=== PATIENT | female | born 1945 | race Caucasian/White ===

== ENCOUNTER 2016-10-23 09:26 | Emergency (ER) | payer MEDICARE ==
--- NOTE | 2016-10-23 10:00 | ED Physician Documentation ---
Syncope/Near Syncope - HISTORIAN Historian: patient - HPI Stated Complaint: syncope Chief Complaint: Syncope Additional Information: passed out while seated on the commode. Hitting face on floor, which startled her awake. No complaints at present, no injury complaints. Witnessed: No Position at Time of Episode: sitting Activity at Time of Episode: voiding and having BM Symptoms Prior to Episode: none Character of Events(s): collapsed, felt faint Duration of Loss of Consciousness: seconds Location of Injury: none, face Associated Symptoms: none, feels back to normal Further Comments: no - ROS CONST: recent illness, cough EYES/ENT: none - PAST HX Cardiac Disease: none PE Risk Factors: none Other History: Other (has a diagnosis of neuro genic syncope since childhood. 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) Immunizations: UTD Allergies/Adverse Reactions: Allergies Allergy/AdvReac Type Severity Reaction Status Date / Time No Known Allergies Allergy Verified 10/23/16 09:57 Home Medications: Ambulatory Orders Medication Instructions Recorded Nitrofurantoin Monohyd/M-Cryst 100 mg PO BID #10 capsule 10/23/16 [Macrobid] - SOCIAL HX Smoking History: non-smoker Alcohol Use: none Drug Use: none - FAMILY HX Family History: none - VITAL SIGNS Vital Signs: Vital Signs Temp Pulse Resp BP Pulse Ox 98.1 F 65 16 151/71 95 10/23/16 09:49 10/23/16 09:49 10/23/16 09:49 10/23/16 09:49 10/23/16 11:03 - REVIEWED ASSESSMENTS Nursing Assessment Reviewed: Yes Vitals Reviewed: Yes ED Results Lab/Radiology - Lab Results Lab Results: Lab Results 10/23/16 10/23/16 10/23/16 10:30 10:00 10:00 WBC RBC Hgb Hct MCV MCH MCHC RDW Plt Count Neut % (Auto) Lymph % (Auto) Grimes % (Auto) Eos % (Auto) Baso % (Auto) Neut # Lymph # Grimes # Eos # Baso # Reactive Lymphs % Reactive Lymphs # Sodium Potassium Chloride Carbon Dioxide BUN Creatinine Estimated Creat Clear Est GFR ( Amer) Est GFR (Non-Af Amer) Glucose Calcium Total Bilirubin AST ALT Alkaline Phosphatase Creatine Kinase CK-MB (CK-2) 1.1 ng/mL ng/mL (0.3-5.0) Troponin I < 0.03 ng/mL L ng/mL (0.03-0.06) Total Protein Albumin Urine Color Yellow (YELLOW) Urine Appearance Clear (CLEAR) Urine pH 8.0 (5.0 - 8.0) Ur Specific Surprise 1.015 (1.010-1.030) Urine Protein Negative mg/dL mg/dL (NEGATIVE) Urine Ketones Negative mg/dL mg/dL (NEGATIVE) Urine Occult Blood 2+ H (NEGATIVE) Urine Nitrite Negative (NEGATIVE) Urine Bilirubin Negative (NEGATIVE) Urine Urobilinogen 0.2 Eu Eu (0.2-1.0) Ur Leukocyte Esterase Negative (NEGATIVE) Urine RBC 5-10 H (0-2 HPF) Urine WBC 0-2 (0-5 HPF) Amorphous Sediment Few H (NEGATIVE) Urine Glucose Negative mg/dL mg/dL (NEGATIVE) 10/23/16 10/23/16 10:00 10:00 WBC 5.40 K/ul K/ul (4.00-12.00) RBC 4.35 M/ul M/ul (3.90-5.20) Hgb 13.1 g/dL g/dL (12.0-16.0) Hct 39.8 % % (34.5-46.5) MCV 91.6 fl fl (80.0-100.0) MCH 30.0 pg pg (28.0-34.0) MCHC 32.8 g/dL g/dL (30.0-36.0) RDW 12.6 % % (11.3-14.3) Plt Count 165 K/mm3 K/mm3 (130-400) Neut % (Auto) 80.2 % H % (39.0-79.0) Lymph % (Auto) 13.4 % L % (16.0-50.0) Grimes % (Auto) 4.7 % % (0.0-11.0) Eos % (Auto) 0.3 % % (0.0-6.8) Baso % (Auto) 0.1 (0.0-1.5) Neut # 4.3 # k/uL # k/uL (1.4-7.7) Lymph # 0.7 # k/uL # k/uL (0.6-4.0) Grimes # 0.2 # k/uL # k/uL (0.0-0.9) Eos # 0.0 # k/uL # k/uL (0.0-0.6) Baso # 0.0 # k/uL # k/uL (0.0-0.5) Reactive Lymphs % 1.2 % % (0.0-5.0) Reactive Lymphs # 0.1 # k/uL # k/uL (0.0-0.8) Sodium 140 mmol/L mmol/L (136-145) Potassium 3.9 mmol/L mmol/L (3.5-5.0) Chloride 102 mmol/L mmol/L (98-110) Carbon Dioxide 33 mmol/L H mmol/L (20-32) BUN 16 mg/dL mg/dL (10-26) Creatinine 0.6 mg/dL mg/dL (0.4-1.5) Estimated Creat Clear 79 Est GFR ( Amer) > 60 (60 - ) Est GFR (Non-Af Amer) > 60 (60 - ) Glucose 97 mg/dL mg/dL (70-99) Calcium 10.0 mg/dL mg/dL (8.5-10.5) Total Bilirubin 0.6 mg/dL mg/dL (0.2-1.2) AST 27 U/L U/L (0-41) ALT 21 U/L U/L (0-45) Alkaline Phosphatase 78 U/L U/L (46-116) Creatine Kinase 46 U/L U/L (0-225) CK-MB (CK-2) Troponin I Total Protein 7.1 g/dL g/dL (6.0-8.5) Albumin 4.9 g/dL g/dL (3.0-5.5) Urine Color Urine Appearance Urine pH Ur Specific Surprise Urine Protein Urine Ketones Urine Occult Blood Urine Nitrite Urine Bilirubin Urine Urobilinogen Ur Leukocyte Esterase Urine RBC Urine WBC Amorphous Sediment Urine Glucose Urine positive for RBC's - Radiology Radiology Impressions: CT brain shows age related changes, no acute CXR shows age related changes of COPD, no acute. - Orders Orders: ED Orders Category Date Time Status Assess pulse oximetry Q1H Care 10/23/16 09:[address] Saline Lock/IV Now Care 10/23/16 09:53 Active CHEST P.A.&LAT 2 VIEWS [RAD] Stat Exams 10/23/[address] BRAIN W/O CONTRAST Stat Exams 10/23/16 Ordered CBC/PLATELET/DIFF Routine Lab 10/23/16 10:00 Completed CMP Routine Lab 10/23/16 10:00 Completed CREATINE KINASE MB Routine Lab 10/23/16 10:00 Completed CREATINE KINASE Routine Lab 10/23/16 10:00 Completed TROPONIN I (cTnI) Stat Lab 10/23/16 10:00 Completed URINALYSIS Routine Lab 10/23/16 10:30 Completed EKG WITH COMPARISON Stat Ther 10/23/16 Ordered Syncope Physical Exam - Physical Exam General Appearance: no acute distress, alert EENT: nml eye inspection, PERRL, nml ENT inspection, pharynx nml (mild erythema) , other (small abrasion upper lip) Neck/Back: neck supple, non-tender, no carotid bruit. No: cerv. lymphadenopathy , carotid bruit Respiratory: no resp distress, chest non-tender, breath sounds normal. No: wheezes, rales, rhonchi CVS: reg rate & rhythm, heart sounds normal, equal pulses, no murmur, no gallop , no JVD Abdomen: non-tender Skin: warm/dry, normal color Extremities: non-tender, normal range of motion, no evidence of injury, no edema - Neuro/Psych Higher Functions: alert, oriented x3, no evidence of acute CVA, mood/affect nml Cranial Nerves: nml as tested Cerebellar: nml as tested Sensorimotor: nml motor response Discharge Clincal Impression: Cystitis Syncopal episodes Qualifiers: Syncope type: unspecified Qualified Code(s): R55 - Syncope and collapse Home Medications: Ambulatory Orders Nitrofurantoin Monohyd/M-Cryst [Macrobid] 100 mg PO BID #10 capsule 10/23/16 Condition: Good Disposition: 01 HOME, SELF-CARE Decision to Admit: NO Date of Decison to Admit: 10/23/16 Decision Time: 11:40
[2016-10-23 10:03] LABS: BASOPHILS % 0.1 (0.0-1.5); EOSINOPHILS % 0.3 % (0.0-6.8); LYMPHOCYTES # 0.7 # k/uL (0.6-4.0); MONOCYTES # 0.2 # k/uL (0.0-0.9); MONOCYTES % 4.7 % (0.0-11.0); NEUTROPHILS # 4.3 # k/uL (1.4-7.7)
[2016-10-23 10:17] LABS: eGFR (African) > 60; eGFR (Non-African) > 60
[2016-10-23 10:37] LABS: APPEARANCE,URINE Clear (CLEAR); COLOR,URINE Yellow (YELLOW); OCCULT BLOOD,URINE 2+ (NEGATIVE); UROBILINOGEN URINE 0.2 Eu (0.2-1.0)
[2016-10-23 10:55] LABS: AMORPHOUS SEDIMENT,UR FEW (NEGATIVE)
[2016-10-23 11:51] VITALS: BP 140/56
--- NOTE | 2016-10-23 13:02 | Diagnostic Imaging Report ---
[facility] [address] [facility] 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 Osseous structures are unremarkable. Heart size and pulmonary vascularity are normal. IMPRESSION: Hyperinflation. Electronically signed on Oct 23, 2016 11:21:09 AM CHEESEMAKING LABORER by: Bud BAUTISTA
--- NOTE | 2016-10-23 13:03 | Diagnostic Imaging Report ---
[facility] [place] [facility] [address] [facility] [address] 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 Gould-white differentiation is intact. There is no intracranial hemorrhage, mass effect, fluid collection, or skull lesion. Visualized sinuses and mastoid air cells are clear. IMPRESSION: Age-appropriate brain atrophy and chronic small vessel ischemic gliosis in cerebral white matter. Electronically signed on Oct 23, 2016 11:22:21 AM AIR CONDITIONING COIL ASSEMBLER by: Bud BAUTISTA
== END 2016-10-23 11:50 | disposition home or self-care (01) ==
LOC: ED 09:26
DX: N30.90 Cystitis, unspecified without hematuria (principal); R42 Dizziness and giddiness
CPT/HCPCS: 70450; 71020; 80053; 81002; 82550; 82553; 84484; 85025; 99284; S1016

== ENCOUNTER 2016-11-03 10:47 | Outpatient (CLI) | payer MEDICARE ==
[2016-11-03 11:31] LABS: eGFR (African) > 60; eGFR (Non-African) > 60
== END 2016-11-03 10:50 ==
LOC: LAB 10:47
PROVIDERS: ATTEND Family Medicine
DX: M31.6 Other giant cell arteritis (principal); E03.9 Hypothyroidism, unspecified
CPT/HCPCS: 36415; 80053; 84443; 85651

== ENCOUNTER 2016-11-16 10:50 | Outpatient (CLI) | payer MEDICARE ==
--- NOTE | 2016-11-16 15:26 | Diagnostic Imaging Report ---
[facility] [address] [facility] [address] [place], [place]. [address] Report Submission Date: Nov 16, 2016 2:56:17 PM CDT Patient Study Name: ROSHNI HUFF Date: Nov 16, 2016 11:04:47 AM CDT Modality Type: CT\SR Gender: F Description: CT ABD & PELVIS W/O CO : 43 Institution: [facility] Physician EV ZIEGLER - MISAEL CT of the abdomen and pelvis without contrast CLINICAL HISTORY: Trace hematuria for a couple of weeks. History of acute cystitis. TECHNIQUE: CT of the abdomen and pelvis is performed without oral or intravenous administration of contrast. Sagittal and coronal reconstructions are performed by the technologist. FINDINGS: Visualized lung bases are clear. There are multiple hepatic cysts in both hepatic lobes. Hypodense lesions are also evident in the spleen. These could represent cysts or hemangiomas. Comparison with prior studies or follow-up ultrasound would be helpful for confirmation if indicated clinically. There is no pancreatic or adrenal abnormality. There is a 3 mm intrarenal calculus in the midportion of the left kidney. Kidneys are of normal size, shape and position. Vascular calcification is present in the abdominal aorta without evidence of aneurysm. There is no evident bladder or ureteral calculus. The bladder is poorly distended. There is no free fluid in the pelvis or abdomen. Appendix is visualized and is within normal limits. IMPRESSION: Multiple hepatic cysts. Hypodense lesions in the spleen that are of uncertain etiology. Consider ultrasound for further evaluation if indicated clinically. Vascular calcification. Negative appendix. Left intrarenal calculus. Decompressed bladder. There is no explanation on this study for the patient's hematuria. Electronically signed on Nov 16, 2016 2:56:17 PM CDT by: Rahul BAUTISTA
== END 2016-11-16 10:52 ==
LOC: LAB 10:50
PROVIDERS: ATTEND Family Medicine
DX: R31.9 Hematuria, unspecified (principal)
CPT/HCPCS: 36415; 74176; 82306; 83735

== ENCOUNTER 2016-11-19 14:00 | Outpatient (CLI) | payer MEDICARE ==
--- NOTE | 2016-11-19 18:58 | Diagnostic Imaging Report ---
EV ZIEGLER [facility] [address] [facility] [address] [address] Report Submission Date: Nov 19, 2016 3:24:54 PM CDT Patient Study Name: ROSHNI HUFF Date: Nov 19, 2016 2:18:45 PM CDT Modality Type: US Gender: F Description: US EXAM ABD BACK WALL : 43 Institution: [facility] Physician: EV ZIEGLER Ultrasound kidneys and urinary bladder History: Hematuria Multiple grayscale and color Doppler images Findings: Comparison: None available at the time of dictation The right kidney measures 4.2 x 10 x 4.3 cm, and demonstrates prominence of the renal pelvis measuring 1.3 x 1.5 centimeters. Flow is demonstrated the right kidney The left kidney measures 4.1 x 10.3 x 4.5 centimeters and demonstrates flow. Its margins are not clearly seen No left hydronephrosis. The bladder is distended with a volume of 413.79 ml prevoid, postvoid it has a residual volume of 81.6 ml. Both ureteral jets are visualized. Small amount of dependent sludge is noted in the urinary bladder. Also noted is right ureteric dilatation posterior to the urinary bladder Impression: 1. Right hydroureter is suggested. There is also prominence of the right renal pelvis, small calculus/ distal obstruction is questioned. 2. Small amount of sludge in the urinary bladder. Post void residue volume of 81 ml 3. No left hydronephrosis. Electronically signed on Nov 19, 2016 3:24:54 PM CDT by: Joycelyn BAUTISTA
== END 2016-11-19 14:02 ==
LOC: RAD 14:00
PROVIDERS: ATTEND Family Medicine
DX: R31.9 Hematuria, unspecified (principal)
CPT/HCPCS: 76770

== ENCOUNTER 2016-11-25 13:07 | Outpatient (CLI) | payer MEDICARE | END 2016-11-25 13:10 | LOC: LABRHC 13:07 | PROVIDERS: ATTEND Family Medicine | DX: J02.9 Acute pharyngitis, unspecified (principal) | CPT/HCPCS: 87070 ==

== ENCOUNTER 2016-11-30 17:28 | Outpatient (CLI) | payer MEDICARE ==
--- NOTE | 2016-11-30 19:55 | Diagnostic Imaging Report ---
Report Submission Date: Nov 30, 2016 6:27:14 PM CDT Patient ~ Study Name: ROSHNI HUFF ~ Date: Nov 30, 2016 5:51:33 PM CDT ~ Modality Type: CR Gender: F ~ Description: CHEST : 43 ~ Institution: [facility] Physician: EV ZIEGLER ~ ~ ~ ~ 2 views the chest Clinical history: Chest pain Findings: The heart size is normal. The pulmonary vasculature is normal. No pleural effusion, pneumothorax or a alveolar consolidation. Impression: No acute disease in the chest. ~ Electronically signed on Nov 30, 2016 6:27:14 PM CDT by: Michael BAUTISTA
== END 2016-11-30 17:30 ==
LOC: RAD 17:28
PROVIDERS: ATTEND Family Medicine
DX: R07.89 Other chest pain (principal)
CPT/HCPCS: 71020

== ENCOUNTER 2016-12-01 12:04 | Outpatient (CLI) | payer MEDICARE ==
[2016-12-01 12:21] LABS: BASOPHILS % 0.1 (0.0-1.5); EOSINOPHILS % 0.8 % (0.0-6.8); MEAN CORPUSCULAR HEMOGLOBIN 30.8 pg (28.0-34.0); NEUTROPHILS # 3.9 # k/uL (1.4-7.7)
[2016-12-01 12:42] LABS: eGFR (African) > 60; eGFR (Non-African) > 60
== END 2016-12-01 12:05 ==
LOC: LAB 12:04
PROVIDERS: ATTEND Family Medicine
DX: R07.89 Other chest pain (principal)
CPT/HCPCS: 36415; 80053; 85025; 85379

== ENCOUNTER 2017-06-11 11:08 | Outpatient (CLI) | payer MEDICARE | END 2017-06-11 11:10 | LOC: LAB 11:08 | PROVIDERS: ATTEND Family Medicine | DX: E03.9 Hypothyroidism, unspecified (principal); M31.6 Other giant cell arteritis; E78.5 Hyperlipidemia, unspecified | CPT/HCPCS: 36415; 80061; 84443; 85651 ==

== ENCOUNTER 2017-12-08 10:34 | Outpatient (CLI) | payer MEDICARE | END 2017-12-08 10:35 | LOC: LAB 10:34 | PROVIDERS: ATTEND Family Medicine | DX: M31.6 Other giant cell arteritis (principal); E03.9 Hypothyroidism, unspecified; R73.9 Hyperglycemia, unspecified | CPT/HCPCS: 36415; 83036; 84443; 85651 ==

== ENCOUNTER 2018-05-20 11:50 | Outpatient (CLI) | payer MEDICARE ==
[2018-05-20 13:22] LABS: eGFR (Non-African) > 60
[2018-05-20 22:51] LABS: BASO % 0.4 % (0.0-1.5); EOS % 0.6 % (0.0-6.8); LYMPH ABS # 1.25 thou/uL (0.60-4.00); MCH. 30.5 pg (28.0-34.0); MCV 91.7 fL (80.0-100.0); MONOCYTE % 7.2 % (0.0-11.0); MONOCYTE ABS # 0.44 thou/uL (0.00-0.90); PLATELET COUNT 216 thou/uL (130-400)
== END 2018-05-20 11:52 ==
LOC: LAB 11:50
PROVIDERS: ATTEND Family Medicine
DX: R53.83 Other fatigue (principal)
CPT/HCPCS: 36415; 80053; 84443; 85025; 85651

== ENCOUNTER 2018-05-31 11:27 | Outpatient (CLI) | payer MEDICARE | END 2018-05-31 11:30 | LOC: LAB 11:27 | PROVIDERS: ATTEND Family Medicine | DX: R53.83 Other fatigue (principal) | CPT/HCPCS: 86618; 86666; 86757 ==

== ENCOUNTER 2018-10-24 11:49 | Outpatient (CLI) | payer MEDICARE ==
[2018-10-24 12:35] LABS: eGFR (Non-African) > 60
== END 2018-10-24 11:50 ==
LOC: LAB 11:49
PROVIDERS: ATTEND Family Medicine
DX: E03.9 Hypothyroidism, unspecified (principal); M19.041 Primary osteoarthritis, right hand; E78.5 Hyperlipidemia, unspecified; M31.6 Other giant cell arteritis
CPT/HCPCS: 36415; 80053; 80061; 84443; 85651

== ENCOUNTER 2019-04-14 10:34 | Outpatient (CLI) | payer MEDICARE ==
[2019-04-14 14:29] LABS: eGFR (Non-African) > 60
[2019-04-14 14:31] LABS: BASOPHILS % 0.2 % (0.0-1.5); NEUTROPHILS # 2.9 # k/uL (1.4-7.7)
== END 2019-04-14 10:36 ==
LOC: LAB 10:34
PROVIDERS: ATTEND Family Medicine
DX: M31.6 Other giant cell arteritis (principal); E03.9 Hypothyroidism, unspecified
CPT/HCPCS: 36415; 80053; 84443; 85025; 86141

== ENCOUNTER 2019-04-26 11:26 | Outpatient (CLI) | payer MEDICARE | END 2019-04-26 11:28 | LOC: LABRHC 11:26 | PROVIDERS: ATTEND Family Medicine | DX: M31.6 Other giant cell arteritis (principal) | CPT/HCPCS: 85651 ==

== ENCOUNTER 2019-05-05 10:21 | Outpatient (CLI) | payer MEDICARE ==
--- NOTE | 2019-05-11 09:39 | Diagnostic Imaging Report ---
EV ZIEGLER [facility] [address] [facility] [address] [place] [address]. [address] Report Submission Date: May 05, 2019 10:57:54 AM CDT Patient Study Name: ROSHNI HUFF Date: May 05, 2019 10:20:59 AM CDT Modality Type: DX Gender: F Description: CHEST 2VIEW : 43 Institution: [facility] Physician: EV ZIEGLER Examination: PA and lateral chest. History: Evaluate lung chang. Comparison exam: None provided. Findings: PA and lateral views of the chest demonstrates a normal cardiac and mediastinal silhouette. Tortuous aorta with vascular calcifications. No focal infiltrate. No blunting of the costophrenic margins. Osseous structures are appropriate for age. Impression: No acute pulmonary process. Electronically signed on May 05, 2019 10:57:54 AM CDT by: Adam BAUTISTA
== END 2019-05-05 10:23 ==
LOC: LAB 10:21
PROVIDERS: ATTEND Family Medicine
DX: R05 Cough (principal)
CPT/HCPCS: 71046

== ENCOUNTER 2019-05-08 17:47 | Outpatient (CLI) | payer MEDICARE | END 2019-05-08 17:50 | LOC: LABRHC 17:47 | PROVIDERS: ATTEND Family Medicine | DX: J02.9 Acute pharyngitis, unspecified (principal) | CPT/HCPCS: 87070 ==

== ENCOUNTER 2019-07-05 14:49 | Outpatient (CLI) | payer MEDICARE | END 2019-07-05 14:54 | LOC: LABRHC 14:49 | PROVIDERS: ATTEND Family Medicine | DX: J02.9 Acute pharyngitis, unspecified (principal) | CPT/HCPCS: 87070 ==

== ENCOUNTER 2019-07-13 10:26 | Outpatient (CLI) | payer MEDICARE ==
--- NOTE | 2019-07-13 12:58 | Diagnostic Imaging Report ---
PATIENT MR#: [id number] PATIENT PATIENT NAME: ROSHNI HUFF DATE OF : 1945 REFERRING PHYSICIAN: Neto Murray EXAM DATE: 07/13/2019 ACCESSION NUMBER: [id number] EXAM DESCRIPTION: CHEST 2VIEW HISTORY: COUGH, DYSPNEA, AND PAIN X12 DAYS. COMPARISON: May 05, 2019. CHEST RADIOGRAPH, FRONTAL AND LATERAL: Upper mediastinum: Not widened. Heart: No cardiomegaly. Lungs: No lobar infiltrate, pulmonary edema, pneumothorax or significant effusion. Skeleton: No acute findings. IMPRESSION: No acute thoracic process. Read by: Dr. Jass Goodman Transcribed by: Jass Goodman Transcribed Date: 07/13/2019 12:57:39 PM Electronically signed by: Dr. Jass Goodman Date signed: 07/13/2019 12:57:47 PM
== END 2019-07-13 10:36 ==
LOC: RAD 10:26
PROVIDERS: ATTEND Family Medicine
DX: R05 Cough (principal)
CPT/HCPCS: 71046